=== PATIENT | male | born 1975 | race Caucasian/White ===

== ENCOUNTER 2022-02-15 01:07 | Emergency (ER) | payer SELFPAY ==
--- NOTE | 2022-02-15 01:23 | ED_ITS ---
HPI - Dental/Oral General Chief complaint: Dental/Oral Stated complaint: TOOTHACHE Time Seen by Provider: 02/15/22 01:23 History of Present Illness HPI Narrative: 46-year-old male nonsmoker with extensive prior dental history presents with a chief complaint of worsening right lower dental pain and some facial swelling over the past few days. He has been in touch with his dentist as an appointment on Sunday and will likely have multiple teeth pulled. He has had no fever chills nor drainage of purulent material. He denies runny nose or sore throat. He has no chest pain or cough. Related Data Previous Rx's Medication Instructions Recorded amoxicillin 875 mg-potassium 1 tab PO Q12H #20 tab 02/15/22 clavulanate 125 mg tablet Allergies Allergy/AdvReac Type Severity Reaction Status Date / Time No Known Drug Allergies Allergy Verified 02/15/22 01:31 Review of Systems Review of Systems Narrative: GENERAL: See HPI HEENT: See HPI RESPIRATORY: Denies dyspnea, cough, wheezing, hemoptysis, sputum. CARDIOVASCULAR: Denies chest pain, palpitations, orthopnea, edema, GASTROINTESTINAL: Denies nausea, vomiting, abdominal pain, diarrhea, constipation, melena. : Denies dysuria, frequency, incontinence, hematuria, urinary retention. MUSCULOSKELETAL: denies weakness, joint pain, or bony pain SKIN: Denies rash, skin lesions, or other NEUROLOGIC: Denies weakness, headache, numbness, change in speech, confusion, seizures, incoordination. PSYCHIATRIC: No concerning psychosocial issues. 12 point review of systems is negative except for those stated above Patient History Social History Smoking Status: Never smoker Exam Narrative Exam Narrative: GEN: AOx3 and in mild distress EYES: Pupils are equal, round, and reactive to light and accommodation. Extraoccular muscles are intact bilaterally. There is no subconjunctival hemorr jonathan or exudate. ENT: Minimal right-sided mandibular swelling. Intraoral exam notes widespread poor dentition with dental fractures and the right lower side. No fluctuance or obvious abscess noted CHEST: Lungs are clear to auscultation bilaterally and free of wheezes, rales, or rhonchi. Heart rate is regular rhythm, there are no murmurs, clicks, rubs, or gallops. There is no chest wall tenderness. ABD: Abdomen is soft and nontender. There is no guarding or rebound. Bowel sounds are normal in all 4 quadrants. There is no mass or organomegaly. EXT: Full painless ROM of all extremities with no loss of sensation or strength. SKIN: Warm, pink, and dry. No erythema or rash Initial Vital Signs Initial Vital Signs: Vital Signs Temperature 97.8 F 02/15/22 01:31 Pulse Rate 81 02/15/22 01:31 Respiratory Rate 15 02/15/22 01:31 Blood Pressure 166/100 H 02/15/22 01:31 Pulse Oximetry 100 02/15/22 01:31 Procedures Nerve Block Nerve Block 1: Local Anesthetic: bupivacaine 0.25% and with epi Amount of anesthesia used (mL): 4 Side: right Intraoral Nerve Block: inferior alveolar Procedure Successful: Yes Patient Tolerated Procedure: Well Complications: none Course Orders Ordered: Discontinued Medications Hydrocodone Bitart/Acetaminophen (Hydrocodone/Acet 5/325 Prepack) 1 bottle MISC SEEINSTR ONE Stop: 02/15/22 01:33 Last Admin: 02/15/22 01:38 Dose: 1 bottle Documented by: GEORGE Amoxicillin/Clavulanate Potassium (Amoxicillin/Clav 875/125 Mg) 1 tab PO NOW ONE Stop: 02/15/22 01:33 Last Admin: 02/15/22 01:38 Dose: 1 tab Documented by: GEORGE Vital Signs Vital signs: Vital Signs - 8 hr 02/15/22 01:31 Temperature 97.8 F Pulse Rate 81 Respiratory Rate 15 Blood Pressure 166/100 H Pulse Oximetry 100 Discharge Plan Departure Patient Disposition: Home Clinical Impression: Toothache, Dental caries Instructions: DI for Dental Pain, Tooth Fracture Activity Restrictions/Additional Instructions: *You have been diagnosed with [dental pain, likely early abscess *What to do: *Please continue to take your regular medications as directed. [ ] New medication prescriptions sent to your pharmacy: [[facility] ] [ ] New medication written as a paper prescription [ ] No new medications given *Please follow up with your primary care provider in 2-3 days, call for an appointment. Let them know you were seen in the Emergency Department and that we ask that you be seen in follow up. We will electronically transmit a record of today's note if your PCP is in our system *If you do not have a primary care provider please contact the [facility] Resource line at [phone]. They will ask some questions about your medical history and help get you set up with a doctor in the community. *Return to Emergency Department if you should have any new, worsening or concerning symptoms, such as [fever greater than 101 F, shaking chills, worsening pain, persistent vomiting or other bothersome symptoms] Prescriptions: New amoxicillin-pot clavulanate 875-125 mg tablet 1 tab PO Q12H Qty: 20 0RF
[2022-02-15 01:31] VITALS: BP 166/100; PULSE 81; RESP 15; TEMP 36.6; O2SAT 100; BMI 27.2
[2022-02-15] MEDS: AMOXICILLIN/CLAV 875/125 MG 1 TAB PO (01:38)
[2022-02-15] MEDS: HYDROCODONE/ACET 5/325 PREPACK 1 BOTTLE MISC (01:38)
[2022-02-15] MEDS: BUPIVACAINE 0.5% W/ EPI (PF) 30 ML VIAL (01:40)
== END 2022-02-15 01:46 | disposition home or self-care (01) ==
PROVIDERS: Emergency Provider Emergency Medicine
DX: K02.9 Dental caries, unspecified (principal)
CPT/HCPCS: 64400; 99283

== ENCOUNTER 2025-01-06 22:16 | Emergency (ER) | payer SELFPAY ==
[2025-01-06 22:25] VITALS: BP 131/76; PULSE 89; RESP 18; TEMP 37; O2SAT 97; BMI 29.2
--- NOTE | 2025-01-06 22:30 | DI.RAD.S_ITS ---
PROCEDURE: XR CHEST 1V INDICATIONS: sob, cough TECHNIQUE: One view of the chest was acquired. COMPARISON: None. FINDINGS AND IMPRESSION: On this single view study, no dense airspace disease or pleural effusion. Mild peribronchial thickening may represent viral infection. Normal heart size. Unremarkable osseous structures. Dictated by: Sajan Neal M.D. on 01/06/2025 at 23:23 Approved by: Sajan Neal M.D. on 01/06/2025 at 23:24
[2025-01-06 23:14] LABS: Influenza A - CEPHEID Flu A POSITIVE (NEGATIVE); Influenza B - CEPHEID Flu B NEGATIVE (NEGATIVE); Respiratory Syncytial Virus Negative (Negative)
[2025-01-06 23:25] LABS: COVID-19 CEPHEID 4-PLEX PCR Negative (Negative)
[2025-01-07 00:20] VITALS: BP 142/74; PULSE 99; RESP 20; TEMP 38.6; O2SAT 99
[2025-01-07] MEDS: IBUPROFEN 400 MG TABLET PO (00:43)
[2025-01-07 03:05] VITALS: BP 131/82; PULSE 85; RESP 16; TEMP 36.6; O2SAT 96
[2025-01-07] MEDS: ACETAMINOPHEN 325 MG TABLET 650 MG PO (03:25)
--- NOTE | 2025-01-07 03:54 | ED.URI ---
HPI - URI/Sore Throat General Chief Complaint: Upper Respiratory Symptoms Stated Complaint: SOB upper respiratory symptoms Time Seen by Provider: 01/07/25 03:45 Source: patient Mode of arrival: Ambulatory History of Present Illness HPI Narrative: Patient is a 49-year-old male history of smoking presenting today with a fever body aches. He has a nonproductive cough no sore throat just generalized body aches and not feeling well Related Data Previous Rx's Medication Instructions Recorded amoxicillin 875 mg-potassium 1 tab PO Q12H #20 tabs 02/15/22 clavulanate 125 mg tablet Allergies Allergy/AdvReac Type Severity Reaction Status Date / Time No Known Drug Allergies Allergy Verified 01/06/25 22:30 Patient History Social History Smoking Status: Current some day smoker Smoking Status: Current some day smoker tobacco type: cigarettes and vaping Exam Initial Vital Signs Initial Vital Signs: Vital Signs Temperature 98.6 F 01/06/25 22:25 Pulse Rate 89 01/06/25 22:25 Respiratory Rate 18 01/06/25 22:25 Blood Pressure 131/76 01/06/25 22:25 Pulse Oximetry 97 01/06/25 22:25 Oxygen Delivery Method Room Air 01/06/25 22:25 GENERAL: Alert 49-year-old male nontoxic appears to not feel well and in [no acute] distress. HEENT: Head atraumatic,EOMI, pupils reactive, face symmetric, [moist] mucous membranes CARDIOVASCULAR: Regular rate and rhythm without murmurs, rubs or gallops. RESPIRATORY: Breath sounds equal bilaterally, no wheezes rales or rhonchi. ABDOMEN: Soft, nontender. Normoactive bowel sounds all 4 quadrants. No guarding or rebound. EXTREMITIES: Normal range of motion, no clubbing or edema. Neurovascularly intact NEUROLOGICAL: Alert and oriented x4.Normal gait and speech. Cranial nerves II through XII grossly intact. SKIN: Warm, dry, no laceration, no petechiae, no rashes or lesions. Course Orders Ordered: ED Orders 01/06/25 22:30 XR chest 1V Stat 01/06/25 22:32 Covid-19 + FLU A/B + RSV - PCR Stat Discontinued Medications Acetaminophen (Acetaminophen 325 Mg Tablet) 650 mg PO NOW ONE Stop: 01/07/25 03:10 Last Admin: 01/07/25 03:25 Dose: 650 mg Documented By: KARLEE Albuterol (Albuterol Hfa Prepack) 1 box MISC DIRECTED ONE Stop: 01/07/25 03:59 Last Admin: 01/07/25 04:03 Dose: 1 box Documented By: ORACIO Ibuprofen (Ibuprofen 400 Mg Tablet) 400 mg PO NOW ONE Stop: 01/07/25 00:38 Last Admin: 01/07/25 00:43 Dose: 400 mg Documented By: KARLEE Vital Signs Vital signs: Vital Signs - 8 hr 01/06/25 22:25 01/07/25 00:20 01/07/25 03:05 Temperature 98.6 F 101.5 F H 97.9 F Pulse Rate 89 99 H 85 Respiratory Rate 18 20 16 Blood Pressure 131/76 142/74 H 131/82 Pulse Oximetry 97 99 96 Oxygen Delivery Method Room Air Room Air Oxygen Flow Rate Fraction of Inspired Oxygen 01/07/25 04:03 01/07/25 04:14 Temperature 98.2 F Pulse Rate 81 Respiratory Rate 16 Blood Pressure 130/89 Pulse Oximetry 98 Oxygen Delivery Method Room Air Room Air Oxygen Flow Rate 0 Fraction of Inspired Oxygen 21 MDM - URI/Sore Throat Lab Data Labs: Lab Results 01/06/25 Range/Units 22:32 SARS-CoV-2 (PCR) Negative (Negative) Influenza A (RT-PCR) Flu a positive H (NEGATIVE) Influenza B (RT-PCR) Flu b negative (NEGATIVE) RSV (PCR) Negative (Negative) Imaging Data Chest x-ray: Radiologist's Impression: PROCEDURE: XR CHEST 1V INDICATIONS: sob, cough TECHNIQUE: One view of the chest was acquired. COMPARISON: None. FINDINGS AND IMPRESSION: On this single view study, no dense airspace disease or pleural effusion. Mild peribronchial thickening may represent viral infection. Normal heart size. Unremarkable osseous structures. Dictated by: Sajan Neal M.D. on 01/06/2025 at 23:23 MDM Narrative Medical decision making narrative: Patient 49-year-old male presenting today with body aches fever. Positive for influenza A. Chest x-ray is negative for pneumonia. He does cough every time he takes a deep breath and is a smoker. Albuterol inhaler given with spacer and teaching by respiratory At this time he was nontoxic he was not hypoxic vitals are stable no need for further workup Discharge Plan Departure Patient Disposition: Home Clinical Impression: Influenza A Instructions: DI for Influenza -- Adult Activity Restrictions/Additional Instructions: *You have been diagnosed with influenza a *What to do: At this time increase fluid as tolerated electrolyte abnormalities. *Continue to take medications as directed Tylenol Motrin as needed for pain or fever Albuterol 1-2 puffs with spacer every 4 hours if needed for coughing or shortness of breath *Follow up with your primary care provider in 2-3 days or call [phone] *Return to ER if you should have increasing shortness of breath chest pain not tolerating fluids [or] any new, worsening or concerning symptoms Prescriptions: No Action amoxicillin-pot clavulanate 875-125 mg tablet 1 tab PO Q12H Qty: 20 0RF Stand Alone Forms: Patient Portal/API/Survey, Work Release Note
[2025-01-07] MEDS: ALBUTEROL HFA PREPACK 1 BOX MISC (04:03)
[2025-01-07 04:14] VITALS: BP 130/89; PULSE 81; RESP 16; TEMP 36.8; O2SAT 98
== END 2025-01-07 04:16 | disposition home or self-care (01) ==
PROVIDERS: Emergency Provider Emergency Medicine
DX: J10.1 Influenza due to other identified influenza virus with other respiratory manifestations (principal); F17.210 Nicotine dependence, cigarettes, uncomplicated
CPT/HCPCS: 0241U; 71045; 99283